=== PATIENT | female | born 1955 | race Caucasian/White ===

== ENCOUNTER 2020-05-08 07:30 | Day surgery (SDC) | payer MEDICAID ==
[~2020-05-08] VITALS: Ht 162.6 cm; Wt 63.6 kg
[2020-05-08] VITALS (8 sets, daily range): BP systolic 127–140; BP diastolic 64–88
[~2020-05-08 07:30] MED LIST: ALEN70TA60 PO; ASPI-1265 PO; ESTR1TAB19 PO; LIPA1CAP18 PO; OMEP40CA13 PO; PROG100C16 PO
[2020-05-08] MEDS ORDERED: fentaNYL/PF 50MCG/1 ML 2ML syringe ONE (07:47)
[2020-05-08] MEDS ORDERED: LIDOcaine Viscous 15ml cup ONE (07:47)
[2020-05-08] MEDS ORDERED: MIDAZolam 5mg/5ml vial ONE (07:47)
[2020-05-08] MEDS ORDERED: ALPR-623 PO (07:47)
[2020-05-08] MEDS ORDERED: DICY10CA88 PO (07:48)
[2020-05-08] MEDS ORDERED: iohexol 300 MG/1 ML 50ml polymer ONE (07:48)
[2020-05-08] MEDS ORDERED: glucagon, human recombinant 1mg kit ONE (07:48)
[2020-05-08] MEDS ORDERED: CYAN100070 PO (07:49)
[2020-05-08] MEDS ORDERED: FIBER PO (07:49)
[2020-05-08] MEDS ORDERED: OMEG-79 PO (07:51)
[2020-05-08] MEDS ORDERED: ERGO400C (07:51)
== END 2020-05-08 10:19 | disposition home or self-care (01) ==
LOC: GI LAB 07:30
PROVIDERS: ATTEND Internal Medicine Gastroenterology
DX: K80.51 Calculus of bile duct without cholangitis or cholecystitis with obstruction (principal); Z90.49 Acquired absence of other specified parts of digestive tract
CPT/HCPCS: 43262; 43264; 99152; 99153; C1769; J1610; J2250; J3010; J7040; Q9967; A4620